=== PATIENT | male | born 1965 | race Two or more races ===

== ENCOUNTER 2018-06-22 01:07 | Emergency (ER) | payer SELFPAY ==
[~2018-06-22] VITALS: Ht 175.3 cm; Wt 80.3 kg
--- NOTE | 2018-06-22 01:15 | NUR ---
PT CAME TO EMERGENCY DEPT. COMPLAINING OF "HEART RACING." PT STATES HE STARTED TO FEEL LIKE HIS HEART WAS RACING AROUND 0000 THIS MORNING. PT IS AXO4. RESPIRATIONS ARE EVEN AN UNLABORED. PT PUT ON THE [employer]CH[employer]ICIAN AND PULSE OX. PENDING EVAL FROM ER MD.
[2018-06-22 02:08] LABS: BASOPHILS # (AUTO) 0.1 /CMM (0.0-0.2); BASOPHILS % (AUTO) 1.1 % (0.0-2.0); EOSINOPHILS % (AUTO) 4.3 % (0.0-6.0); HEMATOCRIT 43 % (39-51); HEMOGLOBIN 14.4 g/dL (13.5-17.5); LYMPHOCYTES # (AUTO) 0.8 /CMM (0.8-4.8); LYMPHOCYTES % (AUTO) 10.7 % (20.0-44.0); MEAN CORPUSCULAR HGB CONC 33 g/dl (31.0-36.0); MEAN CORPUSCULAR VOLUME 88 fL (80-96); MONOCYTES # (AUTO) 0.8 /CMM (0.1-1.30); MONOCYTES % (AUTO) 11.2 % (2.0-12.0); NEUTROPHILS # (AUTO) 5.1 /CMM (1.8-8.9); NEUTROPHILS % (AUTO) 72.7 % (43.0-81.0); PLATELET COUNT (AUTO) 186 /CMM (150-450); RED BLOOD CELL COUNT(AUTO) 4.93 MIL/uL (4.5-6.0); WHITE BLOOD COUNT (AUTO) 7.1 K/uL (4.3-11.0)
[2018-06-22 02:17] LABS: CALCIUM, SERUM 8.7 mg/dL (8.5-10.1); CREATININE 1.4 mg/dL (0.6-1.3); POTASSIUM 4.4 mmol/L (3.5-5.1)
--- NOTE | 2018-06-22 02:31 | NUR ---
PT RESTING IN BED COMFORTABLY, NAD NOTED. WILL CONTINUE TO MONITOR.
[2018-06-22] MEDS ORDERED: IV NS 0.9% 500 ML BAG IV ONE (03:30)
--- NOTE | 2018-06-22 03:53 | NUR ---
Patient discharged to home in stable condition. Written and verbal after care instructions given. Patient verbalizes understanding of instruction. IV removed. Catheter intact and site benign. Pressure and 4x4 applied to site. No bleeding noted.
[2018-06-22 03:56] VITALS: BP 135/71
== END 2018-06-22 03:56 | disposition home or self-care (01) ==
LOC: ER 01:10
DX: E86.0 Dehydration (principal); R00.2 Palpitations; I10 Essential (primary) hypertension; E11.9 Type 2 diabetes mellitus without complications; Z90.89 Acquired absence of other organs; Z98.890 Other specified postprocedural states
CPT/HCPCS: 36415; 80048; 85025; 93005; 99284; J7040